=== PATIENT | male | born 1990 | race Caucasian/White ===

== ENCOUNTER 2019-08-11 13:18 | Emergency (ER) | payer OTHER ==
[2019-08-11 13:47] VITALS: BP 130/90
[2019-08-11] MEDS ORDERED: CYCLOBENZAPRINE 10 MG TABLET PO STA (15:38)
[2019-08-11] MEDS ORDERED: HYDROcod/ACETAM 5/325 MG TABLET PO STA (15:38)
--- NOTE | 2019-08-11 15:41 | ED Physician Documentation ---
PD HPI BACK PAIN - Stated complaint Stated Complaint: BACK PX - Chief complaint Chief Complaint: Back Pain - History obtained from History obtained from: Patient - History of Present Illness Timing - onset: Other (29-year-old gentleman without history of back pain developed a pull in his right low back a few days ago while lifting weights and has progressed such that the pain is more severe and over the last 24 hours has developed some tingling numbness in the right thigh and towards the great toe. No weakness. No saddle anesthesia or fevers.) Review of Systems Ten Systems: 10 systems reviewed and negative Constitutional: denies: Fever, Chills Cardiac: denies: Chest pain / pressure Respiratory: denies: Dyspnea, Cough PD PAST MEDICAL HISTORY - Past Medical History Past Medical History: No - Past Surgical History Past Surgical History: No - Present Medications Home Medications: Ambulatory Orders Medication Instructions Recorded Confirmed Cyclobenzaprine [Flexeril] 10 mg PO TID PRN #20 tablet 08/11/19 Hydrocodone/Acetaminophen 1 - 2 each PO Q6H PRN #14 tablet 08/11/19 [Hydrocodon-Acetaminophen 5-325] predniSONE [Deltasone] 20 mg PO [id number] #21 tab 08/11/19 - Allergies Allergies/Adverse Reactions: Allergies Allergy/AdvReac Type Severity Reaction Status Date / Time No Known Drug Allergies Allergy Verified 08/11/19 13:47 - Social History Does the pt smoke?: No Smoking Status: Never smoker Does the pt drink ETOH?: Yes Does the pt have substance abuse?: No - Immunizations Immunizations are current?: Yes - POLST Patient has POLST: No PD ED PE NORMAL - Vitals Vital signs reviewed: Yes - General General: Alert and oriented X 3, No acute distress - HEENT HEENT: PERRL, EOMI - Neck Neck: Supple, no meningeal sign, No bony TTP - Abdomen Abdomen: Normal bowel sounds, Soft, Non tender - Back Back: No spinal TTP, Other (Tender to the right low back) - Extremities Extremities: Other (He has less of a right patellar reflex than the left but it is not absent. He has some weakness in flexion and extension of the right ankle and mildly diminished sensation in a right L4/L5 distribution.) - Neuro Neuro: Alert and oriented X 3, Normal speech Results - Vitals Vitals: Vital Signs - 24 hr 08/11/19 13:44 Temperature 37.0 C Heart Rate 68 Respiratory 20 Rate Blood Pressure 130/90 H O2 Saturation 97 Oxygen O2 Source Room air PD MEDICAL DECISION MAKING - ED course ED course: 29-year-old gentleman presents with signs and symptoms consistent with an L4-L5 radiculopathy on the right. No evidence of cauda equina/abscess. Departure - Departure Disposition: 01 Home, Self Care Clinical Impression: Lumbar radiculopathy Condition: Good Record reviewed to determine appropriate education?: Yes Instructions: ED Sciatica Prescriptions: Cyclobenzaprine [Flexeril] 10 mg PO TID PRN #20 tablet PRN Reason: Spasms Hydrocodone/Acetaminophen [Hydrocodon-Acetaminophen 5-325] 1 - 2 each PO Q6H PRN #14 tablet PRN Reason: pain predniSONE [Deltasone] 20 mg PO [id number] #21 tab Comments: Talk with your doctor about referral for physical therapy and/or manipulation. Return for new or worsening symptoms. Do not drink Or drive while taking prescription pain medication or muscle relaxers. Forms: Activity restrictions
== END 2019-08-11 15:54 | disposition home or self-care (01) ==
LOC: ED 13:18
DX: M54.16 Radiculopathy, lumbar region (principal)
CPT/HCPCS: 99283; 99284; A9270

== ENCOUNTER 2020-09-28 05:27 | Emergency (ER) | payer OTHER ==
[2020-09-28 05:41] VITALS: BP 126/80
[2020-09-28] MEDS ORDERED: DEXAMETHASONE 10 MG/ML VIAL PO STA (05:44)
[2020-09-28] MEDS ORDERED: CHERRY SYRUP 10 ML UDC PO ONE (05:44)
--- OUTSIDE RECORDS SUMMARY | 2020-09-28 05:44 | EXTERNAL MEDICAL SUMMARY RPT | Continuity of Care Document ---
:1990 Demographics Phone Unavailable Preferred Language Unknown Marital Status Unknown Christian Affiliation Unknown Race Unknown Ethnic Group Unknown Author Organization [facility] Address [address] [place] [address] Phone Social History date description facility [id number]
--- NOTE | 2020-09-28 05:47 | ED Physician Documentation ---
History of Present Illness - Stated complaint Stated Complaint: LOSS OF TASTE/SORE THROAT - Chief complaint Chief Complaint: Heent - History obtained from History obtained from: Patient (30-year-old man, previously healthy presents with about 24 hours of anosmia and loss of taste as well as nasal congestion, postnasal drip, sore throat and nonproductive cough. Denies fevers, chest pain, shortness of breath except when coughing. Denies leg swelling, nausea. Does have body aches an) Review of Systems Ten Systems: 10 systems reviewed and negative Constitutional: reports: Myalgias, Fatigue. denies: Fever Nose: reports: Rhinorrhea / runny nose, Congestion Throat: reports: Sore throat Cardiac: denies: Chest pain / pressure Respiratory: reports: Cough. denies: Dyspnea GI: denies: Abdominal Pain, Nausea PD PAST MEDICAL HISTORY - Past Medical History Past Medical History: Yes Respiratory: Asthma - Past Surgical History Past Surgical History: No - Present Medications Home Medications: Ambulatory Orders Medication Instructions Recorded Confirmed No Known Home Medications 09/28/20 09/28/20 - Allergies Allergies/Adverse Reactions: Allergies Allergy/AdvReac Type Severity Reaction Status Date / Time No Known Drug Allergies Allergy Verified 09/28/20 05:35 - Social History Does the pt smoke?: No Smoking Status: Never smoker Does the pt drink ETOH?: Yes Does the pt have substance abuse?: No - Immunizations Immunizations are current?: Yes - POLST Patient has POLST: No PD ED PE NORMAL - Vitals Vital signs reviewed: Yes - General General: Alert and oriented X 3, No acute distress, Well developed/nourished - HEENT HEENT: Atraumatic, PERRL, EOMI - Neck Neck: Supple, no meningeal sign - Cardiac Cardiac: RRR - Respiratory Respiratory: No respiratory distress, Clear bilaterally - Abdomen Abdomen: Non tender, Non distended - Derm Derm: Normal color - Extremities Extremities: No deformity - Neuro Neuro: Alert and oriented X 3 - Psych Psych: Normal mood, Normal affect Results - Vitals Vitals: Vital Signs - 24 hr 09/28/20 09/28/20 05:30 05:41 Temperature 36.4 C L 36.4 C L Heart Rate 86 86 Respiratory 16 16 Rate Blood Pressure 126/80 126/80 O2 Saturation 96 96 Oxygen O2 Source Room air PD MEDICAL DECISION MAKING - ED course ED course: 30-year-old man presents with mild URI symptoms suspicious for Covid. Covid swab sent. Patient will quarantine until the results come back.Return precautions given. Departure - Departure Disposition: 01 Home, Self Care Clinical Impression: Anosmia, Loss of taste, Cough, Nasal congestion, Sore throat Condition: Good Instructions: ED URI Viral Comments: You were seen in the emergency department for Covid test and for cough, congestion and sore throat. Please quarantine at home until you have your Covid test result back. Have groceries delivered and get curbside pickup for pharmacy supplies. Return to the emergency department if you become short of breath, have New or worsening symptoms or other concerns. Call and make an appointment with your primary doctor via telehealth. Forms: Activity restrictions
== END 2020-09-28 05:56 | disposition home or self-care (01) ==
LOC: ED 05:27
DX: R43.0 Anosmia (principal); R43.8 Other disturbances of smell and taste; R09.81 Nasal congestion; R05 Cough; J02.9 Acute pharyngitis, unspecified; Z20.822 Contact with and (suspected) exposure to COVID-19
CPT/HCPCS: 87635; 99283; 99284; A9270